=== PATIENT | female | born 1955 | race Caucasian/White ===

== ENCOUNTER → 2021-01-06 | Outpatient (CLI) | payer MEDICARE ==
[~2021-01-06] VITALS: Ht 160 cm; Wt 76.2 kg
== END ==
LOC: OPSV 09:00
DX: M81.0 Age-related osteoporosis without current pathological fracture (principal)
CPT/HCPCS: 96360; 96365; J3489

== ENCOUNTER → 2022-02-07 | Outpatient (CLI) | payer MEDICARE | LOC: EXRD 13:50 | DX: M81.0 Age-related osteoporosis without current pathological fracture (principal); M85.852 Other specified disorders of bone density and structure, left thigh | CPT/HCPCS: 77080 ==